=== PATIENT | female | born 1970 | race Caucasian/White ===

== ENCOUNTER 2020-10-23 06:25 | Day surgery (SDC) | payer OTHER ==
[2020-10-23] MEDS ORDERED: Lactated Ringers 1,000 ML IV SCH (07:00)
[2020-10-23] MEDS ORDERED: DIPRIVAN 200 MG/20 ML IV ONE (07:51)
[2020-10-23] MEDS ORDERED: Versed 2 MG/2 ML Injection ONE (08:09)
--- NOTE | 2020-10-23 08:38 | OP ---
SURGERY DATE/TIME: 10/23/2020 0758 PREOPERATIVE DIAGNOSIS: Screening exam. POSTOPERATIVE DIAGNOSIS: Normal colon. PROCEDURE: Colonoscopy. SURGEON: Dr. Oliver. ANESTHESIA: MAC. Medications given by anesthesia department. HISTORY: The patient is a 49 year-old white female presenting now for screening colonoscopy. She was appraised of the risks of the procedure including the risk of perforation, phlebitis, untoward reaction to medication, bleeding and missed lesions. The patient verbalized her understanding and desired to have the procedure performed. DESCRIPTION OF PROCEDURE: The patient was given the medications by the anesthesia department. She had continuous pulse oximetry, ECG monitoring, intermittent blood pressure monitoring and tidal CO2 monitoring during the examination. She was placed in the left lateral decubitus position. A digital rectal examination was performed and revealed normal anal sphincter tone, external hemorrhoids and no masses. The flexible Olympus pediatric colonoscope was used to intubate the rectum. A view of the colon was developed sequentially to the cecum. Upon insertion and withdrawal, including a retroflex view in the rectum, no mucosal lesions were encountered. The scope was removed from the patient who tolerated the procedure well and was sent back to OP recovery in good condition. The prep was noted to be fair.
[2020-10-23 09:42] VITALS: BP 134/61; PULSE 71; O2SAT 99
== END 2020-10-23 09:35 | disposition home or self-care (01) ==
LOC: SDC 06:25
PROVIDERS: ATTEND Family Medicine
DX: Z12.11 Encounter for screening for malignant neoplasm of colon (principal); E11.9 Type 2 diabetes mellitus without complications; I10 Essential (primary) hypertension; Z79.899 Other long term (current) drug therapy
CPT/HCPCS: 82947; J2250; J2704

== ENCOUNTER 2020-11-22 16:15 | Emergency (ER) | payer OTHER ==
[2020-11-22] MEDS ORDERED: solu-MEDROL 125 MG IV ONE (16:19)
--- NOTE | 2020-11-22 16:19 | ERPHSYRPT ---
- History of Present Illness Time Seen by Provider: 11/22/20 16:19 Source: patient Exam Limitations: no limitations Physician History: This is a 49-year-old white female with 1 week history of cough and mild shortness of breath as well as some myalgias and arthralgias. She has had no vomiting or diarrhea. Patient was diagnosed with COVID-19 infection 2 days ago. Her symptoms slightly worsened today and she wanted an evaluation. Patient denies abdominal pain. She denies chest pain. Timing/Duration: day(s) Activities at Onset: none Severity of Dyspnea-Max: mild Severity of Dyspnea-Current: mild Possible Cause: no prior episodes Associated Symptoms: cough (Mild), productive cough (Yellowish but mild amount), No anxiety, No chest pain/discomfort, No fever, No wheezing, No weakness, No dizziness, No painful breathing Allergies/Adverse Reactions: No Known Drug Allergies Allergy (Verified 11/22/20 16:25) Home Medications: Metformin HCl 1,000 mg PO BID 10/15/20 [History] Metoprolol Tartrate [Lopressor] 100 mg PO DAILY 10/15/20 [History] Zolpidem Tartrate 10 mg [Ambien 10 MG] 10 mg HS 10/23/20 [History] Travel Risk - International Travel Have you traveled outside of the country in past 3 weeks: No - Coronavirus Screening Are you exhibiting any of the following symptoms?: Yes Symptoms: Cough: New Onset, Shortness of Breath Close contact with a COVID-19 positive Pt in past 14-21 Days: No - Vaccine Status Have you recieved a Covid-19 vaccination: No - Review of Systems Constitutional: No Symptoms Eyes: No Symptoms Ears, Nose, & Throat: No Symptoms Respiratory: Cough, Dyspnea (Mild) Cardiac: No Symptoms Abdominal/Gastrointestinal: No Symptoms Genitourinary Symptoms: No Symptoms Musculoskeletal: No Symptoms Skin: No Symptoms Neurological: No Symptoms Psychological: No Symptoms Endocrine: No Symptoms Hematologic/Lymphatic: No Symptoms Immunological/Allergic: No Symptoms All Other Systems: Reviewed and Negative - Past Medical History Pertinent Past Medical History: Yes - Past Surgical History Past Surgical History: Yes Other Surgical History: no surgery - Nursing Vital Signs Nursing Vital Signs: Initial Vital Signs Temperature 97.3 F 11/22/20 16:16 Pulse Rate 117 H 11/22/20 16:16 Respiratory Rate 12 11/22/20 16:16 Blood Pressure 175/102 11/22/20 16:16 O2 Sat by Pulse Oximetry 97 11/22/20 16:16 Pain Scale Pain Intensity 0 - Physical Exam General Appearance: no apparent distress, alert Eye Exam: PERRL/EOMI, eyes nml inspection Ears, Nose, Throat Exam: hearing grossly normal (Patient has a dry mouth) Neck Exam: normal inspection, non-tender, supple, full range of motion Respiratory Exam: normal breath sounds, lungs clear, airway intact, No chest tenderness, No respiratory distress Cardiovascular/Chest Exam: tachycardia Abdominal/Gastrointestinal Exam: soft, normal bowel sounds, No tenderness Skin Exam: normal color, warm, dry Lymphatic Exam: No adenopathy SpO2 Interpretation: normal O2 Delivery: Room Air - Course Nursing assessment & vital signs reviewed: Yes EKG Interpreted by Me: RATE ([id number]), NORMAL AXIS, NORMAL INTERVALS, NORMAL QRS, Non-specific ST Changes, Other Ordered Tests: Active Orders 24 hr Category Date Time Status Russian Teacher STAT Care 11/22/20 16:20 Active EKG-ER Only STAT Care 11/22/20 16:19 Active IV Insertion STAT Care 11/22/20 16:19 Active Pulse Oximetry (ED) STAT Care 11/22/20 16:19 Active CHEST 1 VIEW (PORTABLE) Stat Exams 11/22/20 16:20 Completed BLOOD CULTURE Stat Lab 11/22/20 16:32 Received CBC W DIFF Stat Lab 11/22/20 16:25 Completed CMP Stat Lab 11/22/20 16:25 Completed D-DIMER QUANTITATIVE Stat Lab 11/22/20 16:25 Completed INFLUENZA A+B MIGUEL Stat Lab 11/22/20 16:32 Completed Lactic Acid Stat Lab 11/22/20 16:19 Completed MAGNESIUM Stat Lab 11/22/20 16:25 Completed Manual Differential NC Stat Lab 11/22/20 16:25 Completed NT PRO BNP Stat Lab 11/22/20 16:25 Completed PROTIME WITH INR Stat Lab 11/22/20 16:25 Completed TROPONIN Q3H Lab 11/22/20 16:25 Completed TROPONIN Q3H Lab 11/22/20 19:30 Ordered TROPONIN Q3H Lab 11/22/20 22:30 Ordered TROPONIN Q3H Lab 11/23/20 01:30 Ordered TROPONIN Q3H Lab 11/23/20 04:30 Ordered UA W/RFX UR CULTURE Stat Lab 11/22/20 16:20 Ordered Medication Summary Generic Name Dose Route Start Last Admin Trade Name Sunita PRN Reason Stop Dose Admin Sodium Chloride 1,000 mls @ 100 mls/hr 11/22/20 16:30 11/22/20 16:30 Sodium Chloride 0.9% 1000 Ml IV 12/22/20 16:29 100 mls/hr .Q10H KARISSA Administration Ceftriaxone Sodium/Dextrose 1 g in 50 mls @ 100 mls/hr 11/22/20 17:43 Rocephin 1 Gm-D5w 50 Ml Bag IV 11/22/20 18:12 STAT STA Discontinued Medications Generic Name Dose Route Start Last Admin Trade Name Sunita PRN Reason Stop Dose Admin Methylprednisolone Sodium Succinate 125 mg 11/22/20 16:19 11/22/20 16:30 Solu-Medrol 125 Mg IV 11/22/20 16:20 125 mg STAT ONE Administration Methylprednisolone Sodium Succinate Confirm 11/22/20 16:27 Solu-Medrol 125 Mg Administered 11/22/20 16:28 Dose 125 mg .ROUTE .STK-MED ONE Lab/Rad Data: Laboratory Result Diagrams 11/22/20 16:25 11/22/20 16:25 Laboratory Results 11/22/20 11/22/20 11/22/20 Range/Units 16:32 16:25 16:25 WBC (4.0-10.5) K/mm3 RBC (4.1-5.4) M/mm3 Hgb (12.0-16.0) gm/dl Hct (35-47) % MCV (78-100) fl MCH (26-32) pg MCHC (32-36) g/dl RDW (11.5-14.0) % Plt Count (150-450) K/mm3 MPV (7.5-11.0) fl PT 13.8 H (9.95-12.35) SECONDS INR 1.22 (0.8-3.0) D-Dimer 497 (215-500) ng/mL Sodium (137-145) mmol/L Potassium (3.5-5.1) mmol/L Chloride (98-107) mmol/L Carbon Dioxide (22-30) mmol/L Anion Gap (5-15) MEQ/L BUN (7-17) mg/dL Creatinine (0.52-1.04) mg/dL Estimated GFR ML/MIN Glucose (74-106) mg/dL Lactic Acid (0.4-2.0) Calcium (8.4-10.2) mg/dL Magnesium (1.6-2.3) mg/dL Total Bilirubin (0.2-1.3) mg/dL AST (14-36) U/L ALT (0-35) U/L Alkaline Phosphatase (38-126) U/L Troponin I < 0.012 (0.000-0.034) ng/mL NT-Pro-B Natriuret Pep (0-900) pg/mL Serum Total Protein (6.3-8.2) g/dL Albumin (3.5-5.0) g/dL Influenza Type A Ag NEGATIVE (NEGATIVE) Influenza Type B Ag NEGATIVE (NEGATIVE) 11/22/20 11/22/20 11/22/20 Range/Units 16:25 16:25 16:19 WBC 8.8 (4.0-10.5) K/mm3 RBC 5.18 (4.1-5.4) M/mm3 Hgb 14.6 (12.0-16.0) gm/dl Hct 44.8 (35-47) % MCV 86.5 (78-100) fl MCH 28.2 (26-32) pg MCHC 32.6 (32-36) g/dl RDW 12.5 (11.5-14.0) % Plt Count 462 H (150-450) K/mm3 MPV 9.5 (7.5-11.0) fl PT (9.95-12.35) SECONDS INR (0.8-3.0) D-Dimer (215-500) ng/mL Sodium 137 (137-145) mmol/L Potassium 4.2 (3.5-5.1) mmol/L Chloride 99 (98-107) mmol/L Carbon Dioxide 25 (22-30) mmol/L Anion Gap 17.7 H (5-15) MEQ/L BUN 11 (7-17) mg/dL Creatinine 0.74 (0.52-1.04) mg/dL Estimated GFR > 60.0 ML/MIN Glucose 244 H (74-106) mg/dL Lactic Acid 3.7 H (0.4-2.0) Calcium 9.4 (8.4-10.2) mg/dL Magnesium 1.7 (1.6-2.3) mg/dL Total Bilirubin 0.80 (0.2-1.3) mg/dL AST 51 H (14-36) U/L ALT 41 H (0-35) U/L Alkaline Phosphatase 102 (38-126) U/L Troponin I (0.000-0.034) ng/mL NT-Pro-B Natriuret Pep 431 (0-900) pg/mL Serum Total Protein 8.1 (6.3-8.2) g/dL Albumin 4.1 (3.5-5.0) g/dL Influenza Type A Ag (NEGATIVE) Influenza Type B Ag (NEGATIVE) - Progress Air Movement: good Progress Note: 11/22/20 17:51 Chest x-ray: Although I did not see any acute infiltrate present, the radiologist states that there is subtle groundglass airspace disease within the peripheral right mid to lower lung field and peripheral left lower lung field. Pneumonia needs to be considered. 11/22/20 17:54 Medical decision making: This patient has a Covid 19 infection. Her oxygenation level on room air is running between 97 and 99%. She has no chest pain. Patient states she is feeling much better now than when she came in. We had a shared decision conversation. I told her I was fine admitted her into the hospital for observation. However, she stated that she preferred to go home since she was feeling well. I will send her home with a prescription for a Z-P ak and prednisone. She has chronically high blood pressure we will give her a dose of Lopressor, which she takes at home, prior to her discharge to home. Blood Culture(s) Obtained: Yes Antibiotics given: Yes Counseled pt/family regarding: lab results, diagnosis, need for follow-up, rad results - Departure Departure Disposition: Home Clinical Impression: COVID-19 virus infection, Pulmonary infiltrates on CXR Condition: Stable Critical Care Time: No Referrals: DEBORAH PAN NP [Primary Care Provider] - Additional Instructions: Take your medication as prescribed. Quarantine yourself as you have COVID-19 infection. Drink plenty of fluids. Monitor your blood sugar closely. Return to the emergency department if your symptoms recur or worsen Prescriptions: Prednisone 10 mg [Deltasone 10 mg] 10 mg PO TID #12 tablet Azithromycin 250 mg [Zithromax 250 MG TABLET] 250 mg PO ZPACK #6 tablet
[2020-11-22] MEDS ORDERED: solu-MEDROL 125 MG ONE (16:27)
[2020-11-22] MEDS ORDERED: Sodium Chloride 0.9% 1000 ML 1,000 ML ONE (16:27)
[2020-11-22] MEDS ORDERED: Sodium Chloride 0.9% 1000 ML 1,000 ML IV SCH (16:30)
[2020-11-22 16:40] LABS: Hematocrit 44.8 % (35-47); Hemoglobin 14.6 gm/dl (12.0-16.0); Mean Cell Volume 86.5 fl (78-100); Mean Corpuscular Hemoglobin 28.2 pg (26-32); Mean Corpuscular Hgb Concent. 32.6 g/dl (32-36); Mean Platelet Volume 9.5 fl (7.5-11.0); Platelet Count 462 K/mm3 (150-450); Red Blood Count 5.18 M/mm3 (4.1-5.4); Red Cell Distribution Width 12.5 % (11.5-14.0); White Blood Count 8.8 K/mm3 (4.0-10.5)
[2020-11-22 16:46] LABS: INR 1.22 (0.8-3.0); PROTIME 13.8 SECONDS (9.95-12.35)
[2020-11-22 17:00] LABS: INFLUENZA A NEGATIVE (NEGATIVE); INFLUENZA B NEGATIVE (NEGATIVE)
[2020-11-22 17:01] LABS: ALBUMIN 4.1 g/dL (3.5-5.0); ALKALINE PHOSPHATASE 102 U/L (38-126); ANION GAP 17.7 MEQ/L (5-15); BLOOD UREA NITROGEN 11 mg/dL (7-17); CHLORIDE 99 mmol/L (98-107); Calcium 9.4 mg/dL (8.4-10.2); Carbon Dioxide 25 mmol/L (22-30); Creatinine 1 0.74 mg/dL (0.52-1.04); EST GLOMERULAR FILTRATION RATE > 60.0 ML/MIN; Glucose 244 mg/dL (74-106); MAGNESIUM 1.7 mg/dL (1.6-2.3); NT PRO BNP 431 pg/mL (0-900); Potassium 4.2 mmol/L (3.5-5.1); SGOT/AST 51 U/L (14-36); SGPT/ALT 41 U/L (0-35); SODIUM 137 mmol/L (137-145); Total Protein 8.1 g/dL (6.3-8.2)
--- NOTE | 2020-11-22 17:34 | XRAY ---
Exam: AP upright portable chest film from 11/22/2020. Comparison: None. Indication: Covid-19 positive; shortness of breath and what cough for one week; nonsmoker. Findings: The transverse heart size appears within normal limits. I believe there is some subtle grid line artifacts seen. The elio and mediastinal structures appear unremarkable. There appears to be some subtle peripheral groundglass airspace disease within the peripheral right mid to lower lung field and the peripheral left upper lung field. This may be due to pneumonia. The remainder of the lung mulligan appears clear. Pulmonary vascularity is normal. No pneumothorax or pleural effusion is seen. Slight convexity of the upper thoracic spine toward the right is seen. Lateral osteophyte formation is seen throughout the lower thoracic spine. No acute osseous process is seen. EKG leads are seen in place. Impression: 1. Subtle groundglass airspace disease is seen within the peripheral right mid to lower lung field and the peripheral left upper lung field. This may be due to pneumonia.
[2020-11-22] MEDS ORDERED: ROCEPHIN 1 Gm-D5w 50 ml Bag** 1 G/50 ML IVPB IV STA (17:43)
[2020-11-22] MEDS ORDERED: ROCEPHIN 1 Gm-D5w 50 ml Bag** 1 G/50 ML IVPB IV ONE (17:48)
[2020-11-22 20:05] VITALS: BP 168/71; PULSE 111; O2SAT 97
[2020-11-22 21:18] LABS: Basophil 1 % (0.0-1.0); Eosinophil 3 % (0.00-3.0); Lymphocytes 20 % (24-44); Monocyte 10 % (0.0-12.0); Neutrophils 66 % (36.0-66.0); Total Cells Counted 100
[2020-11-22 21:19] LABS: Platelet Estimate INCREASED (NORMAL)
== END 2020-11-22 20:07 | disposition home or self-care (01) ==
LOC: ED 16:15
DX: U07.1 COVID-19 (principal); R91.8 Other nonspecific abnormal finding of lung field
CPT/HCPCS: 36000; 36415; 71045; 80053; 83605; 83735; 83880; 84484; 85025; 85379; 85610; 87040; 87400; 93005; 93041; 94760; 96365; 96374; 99284; J0696; J2930